=== PATIENT | male | born 1945 | race African-American/Black ===

== ENCOUNTER 2023-10-09 00:28 | Inpatient (IN) ==
--- NOTE | 2023-10-09 00:41 | Emergency Department Note ---
History of Present Illness General Chief complaint: Chest Pain Stated complaint: R SIDED CHEST PAIN Time Seen by Provider: 10/09/23 00:28 Source: patient, EMS and old records reviewed ([facility]) Mode of arrival: EMS Limitations: other (Poor historian and as EMS he does have dementia) History of Present Illness This patient is a 78-year-old male who [facility] by [facility] after having chest pain apparently he seems to be a very poor historian and by EMS report does have dementia. He denies any pain at present he apparently was having right-sided chest pain that was reproducible upon palpation and movement he denies any pain at present I did give him aspirin and nitroglycerin. He has had no reported fall or trauma. No fever or chills. Allergies Allergy/AdvReac Type Severity Reaction Status Date / Time No Known Allergies Allergy Unverified 10/09/23 02:54 Past Med/Surg History Problem List (Updated 10/09/23 @ 03:45 by Pérez Nuno MD) Incarceration (Acute) Pulmonary embolism (Acute) Right bundle branch block (Acute) Chest pain (Acute) Social History Smoking Status: Unknown if ever smoked Preferred Language: Croatian Feels Safe at Home: Yes Immunizations: Past medical history-increased cholesterol, dementia Review of Systems A total of 10 systems reviewed and were otherwise negative Physical Exam Vital Signs Vital Signs - 24 hr 10/09/23 00:21 10/09/23 00:21 10/09/23 00:35 Temperature 37.3 C Temperature Source Oral Pulse Rate 86 75 Pulse Rhythm Regular Regular Pulse Strength Normal Respiratory Rate 16 16 Respiratory Effort / Characteristics Non-Labored Respiratory Depth Normal Respiratory Pattern Regular Blood Pressure 155/97 H Blood Pressure Mean 116 Blood Pressure Position Sitting Pulse Oximetry 95 95 95 Oxygen Delivery Method Room Air Room Air Room Air Sepsis Recent Fever Within 48 Hours No Sepsis New/Unexplained Change in Mental Status No Sepsis Action Taken by Nursing No Action Required 10/09/23 00:39 Temperature Temperature Source Pulse Rate 93 H Pulse Rhythm Pulse Strength Respiratory Rate Respiratory Effort / Characteristics Respiratory Depth Respiratory Pattern Blood Pressure Blood Pressure Mean Blood Pressure Position Pulse Oximetry Oxygen Delivery Method Sepsis Recent Fever Within 48 Hours Sepsis New/Unexplained Change in Mental Status Sepsis Action Taken by Nursing General: Well developed well nourished older male who appears in no acute distress, breathing comfortably on room air. Normal speech. He answers most questions appropriately but very vaguely and appears to be a poor historian HEENT: Normal cephalic atraumatic. Pupils are equal round and reactive to light. Extraocular movements are intact. Oropharynx is pink with moist mucous membranes. No swelling of the mouth lips or tongue. Neck: Supple with a midline trachea. No meningeal signs or stiffness, no JVD or bruits. No Stridor. Chest: Clear to auscultation bilaterally. No wheezes or rhonchi. No increased work of breathing. No crepitus or subcutaneous air no tenderness at present Heart: Regular rate and rhythm without murmurs or gallops. Abdomen: Soft nontender, nondistended without rebound guarding or rigidity. Extremities: No cyanosis clubbing or edema. No calf tenderness or assymetry Spine/Back. Non tender to palpation. No CVA tenderness Skin: Good turgor without rashes. Neurologic exam: Cranial nerves two through 12 are intact. Motor and sensation are intact and symmetrical throughout. Course Administered Medications Heparin Sodium/Dextrose (Heparin Sodium/Dextrose) 25,000 units in 500 mls @ 24 mls/hr IV .[id number] [facility]; Protocol Stop: 11/08/23 03:14 Last Admin: 10/09/23 03:32 Dose: 1,200 units/hr, 24 mls/hr Documented By: FERNANDO Co-signed By: JAMEY Discontinued Medications Heparin Sodium (Porcine) (Heparin Sod (Porcine) 1000 Unit/Ml) 5,000 units IV NOW ONE Stop: 10/09/23 03:16 Last Admin: 10/09/23 03:32 Dose: 5,000 units Documented By: FERNANDO Co-signed By: JAMEY Ioversol (Optiray 320 125ml) 112 ml IV ONCE ONE Stop: 10/09/23 01:52 Last Admin: 10/09/23 01:55 Dose: 112 ml Documented By: AG Miscellaneous Information (Patient's Allergy Info Needs Entered) 1 each N/A NOW STA Stop: 10/09/23 02:48 Last Admin: 10/09/23 02:55 Dose: 1 each Documented By: FERNANDO Critical Care Time Critical Care Time: Yes Total Critical Care Time: 30 Due to the patient's chest pain, significant cardiac workup and then workup treatment evaluation for pulmonary embolism with IV heparin, frequent reassessment and discussion with the consultants as well as the patient, I have personally spent greater than 30 minutes of critical care time in the direct management of this patient. This includes bedside care, interpretation of diagnostic studies, and testing, discussion with consultants, patient, and family members, and other required patient management activities. This 30 minutes is in excess of all separately billable procedures. Medical Decision Making Differential Diagnosis Acute coronary syndrome, arrhythmia, PE, pneumothorax, GERD, musculoskeletal, infection Medical Records Attestation: I reviewed the patient's medical records. Home Medications Current Medication List: was personally reviewed by me Laboratory Data Attestation: I reviewed the patient's lab results. Chest x-rayno acute infiltrate, failure, pneumothorax seen 10/09/23 00:33 10/09/23 00:33 Lab Results 10/09/23 10/09/23 Range/Units 00:33 02:40 WBC 7.50 (4.8-10.8) K/ul RBC 4.16 L (4.70-6.10) M/uL Hgb 13.2 L (14.0-18.0) g/dl Hct 38.3 L (42.0-52.0) % MCV 92.1 (80.0-100.0) fL MCH 31.7 (25.0-34.0) pg MCHC 34.5 (32.0-36.0) g/dL RDW Std Deviation 41.8 (36.4-46.3) fL RDW Coeff of Edinson 12.3 (11.5-14.5) % Plt Count 166 (130-400) K/uL MPV 10.3 (9.4-12.4) fL Immature Gran % (Auto) 0.4 % Neut % (Auto) 60.6 % Lymph % (Auto) 24.7 % [place] % (Auto) 12.9 % Eos % (Auto) 1.1 % Baso % (Auto) 0.3 % Neut # (Auto) 4.55 (1.40-6.50) K/uL Lymph # (Auto) 1.85 (1.20-3.40) K/uL [place] # (Auto) 0.97 H (0.11-0.59) K/uL Eos # (Auto) 0.08 (0.00-0.50) K/uL Baso # (Auto) 0.02 (0.00-0.20) K/uL Immature Gran # (Auto) 0.03 (0.01-0.20) K/uL PT 11.0 (9.0-12.0) Seconds INR 1.0 (0.9-1.1) APTT 26 (21-31) Seconds PTT Ratio 1.0 D-Dimer 4270 H* (0-500) ug/L FEU Sodium 136 (136-145) mmol/L Potassium 4.7 (3.5-5.1) mmol/L Chloride 106 (98-107) mmol/L Carbon Dioxide 23 (21-32) mmol/L Anion Gap 7 (3-11) BUN 22 (6-23) mg/dl Creatinine 1.22 (0.6-1.4) mg/dl Est Cr Clr Drug Dosing 45.8 ml/min Est GFR ( Amer) 65.9 ml/min Est GFR (Non-Af Amer) 56.8 ml/min BUN/Creatinine Ratio 18.0 (10-20) Glucose 141 H (70-99(Fasting)) mg/dl Calcium 9.4 (8.6-10.3) mg/dl Magnesium 2.0 (1.7-2.4) mg/dl Total Bilirubin 1.8 H (0.2-1.0) mg/dl AST 32 (13-39) U/L ALT 41 (7-52) U/L Alkaline Phosphatase 79 (34-104) U/L Troponin I High Sens 9.3 8.8 (0-20) pg/ml Total Protein 7.6 (6.0-8.3) gm/dl Albumin 3.9 (3.4-5.0) gm/dl Globulin 3.7 (2.5-4.0) gm/dl Albumin/Globulin Ratio 1.1 (0.9-2) Lipase 17 (11-82) U/L Imaging Data Attestation: I personally reviewed and interpreted this imaging study as follows: My Impression: Chest x-rayno acute infiltrate, failure, pneumothorax seen as per my independent interpretation CTA of the chest there is medium sized PE on the right. There is no saddle emboli. There appears to be changes in the lung as well which could be infarct Radiologist's Impression: Chest CTA 10/09/23 01:39 CR Exam(s): CTA CHEST IV Amt: 112 cc opti 320 EXAM: CT Chest With Intravenous Contrast CLINICAL HISTORY: Reason for exam: CP, 4200 d dimer.. TECHNIQUE: Axial computed tomographic images of the chest with intravenous contrast. CTDI is 18.1 mGy and DLP is 543.77 mGy-cm. Automated exposure control was utilized for the study. A dose lowering technique was utilized adhering to the principles of ALARA. COMPARISON: No relevant prior studies available. FINDINGS: Pulmonary arteries: Occlusive pulmonary emboli within the right lower lobe segmental and subsegmental pulmonary arteries. Partially occlusive right middle lobe subsegmental pulmonary arteries. Aorta: Ectasia of the Descending thoracic aorta 3.3 cm. No thoracic aortic aneurysm. Lungs: Right lower lobe infiltrate may represent pulmonary infarct. No mass. Pleural space: Unremarkable. No significant effusion. No pneumothorax. Heart: Cardiomegaly. Coronary artery calcification. No significant pericardial effusion. No evidence of RV dysfunction. Bones/joints: No acute fracture. No dislocation. Soft tissues: Unremarkable. Lymph nodes: Unremarkable. No enlarged lymph nodes. IMPRESSION: Occlusive pulmonary emboli within the right lower and middle lobe pulmonary arteries Infiltrate at the right lung base may represent the sequelae from early pulmonary infarct. Communications: Call Doctor Pulmonary Embolism Electronically signed by: Jamaal Leblanc MD 10/09/23 02:46 AM ECG Data Attestation: I personally reviewed and interpreted this ECG as follows: Indication: + chest pain Rate (beats per minute): 88 Rhythm: + normal sinus ECG Intervals/blocks: + Right Bundle branch block ECG [place]: + Left axis deviation ECG ST segments: + Normal ST segments ECG Findings: no PACs or no PVCs Comparison ECG Date: from (Earlier EKG at [place], no change) Additional Comments: EKG done herenormal sinus rhythm at a rate of 84 left axis deviation right bundle branch block. No significant change compared EKG to the prehospital EKG. EKG #2: Normal sinus rhythm rate of 75 left axis deviation right bundle branch block. No change compared to EKG #1 MDM Narrative This patient comes in as described above. He was placed on a it business process architect room a 12 he has gotten aspirin and nitro prior to arrival he appears comfortable he is a very poor historian and apparently has some dementia but does not seem to have any complaints at present I reviewed the EKGs from he has 2 of them done there which shows a right bundle branch block. I do not have any old ones for comparison we did a full cardiac workup here was placed on a it business process architect EKG was repeated cardiac biomarkers were done. Chest x-ray was also obtained. He was reassessed. His EKG does not show any ischemic changes and there is no change between his 2 EKGs had prehospital and the first 1 done here. His chest x-ray was unremarkable there is no congestive heart failure, pneumonia, pneumothorax. His troponin was normal. He has no significant electrolyte or metabolic abnormalities. EKG x 2 does not show any acute ischemic changes compared to the one done earlier. His troponin twice was also negative. His D-dimer was significantly elevated and I did do a CT angiography. It does appear that he has a pulmonary pulmonary emboli on the right. I talked the patient at length he had no recent trauma he is on no blood thinners he had no blood or melena in his stool. I did discuss the case at length with Dr. Olson as well in consultation as the patient will need to be admitted he agreed was started on heparin IV with standard bolus. The patient will be admitted for treatment and evaluation of his pulmonary embolism. Continuous cardiac monitoring: Orders placed in EMR for continuous it business process architect: Upon my evaluation patient noted to be in normal sinus rhythm rate of 85 Impression & Plan Pulmonary embolism, Chest pain, Right bundle branch block, Incarceration Discharge Plan Visit Data Chief Complaint: Chest Pain Stated Complaint: R SIDED CHEST PAIN ED Provider: Pérez Nuno Discharge Problem: Pulmonary embolism, Chest pain, Right bundle branch block, Incarceration Forms Stand Alone Forms: My [facility] Referrals Referrals: Sabino VALDEZ [Primary Care Provider] - Discharge Problem: Pulmonary embolism Qualifiers: Pulmonary embolism type: unspecified Chronicity: acute Acute cor pulmonale presence: unspecified Qualified Code(s): I26.99 - Other pulmonary embolism without acute cor pulmonale Chest pain Qualifiers: Chest pain type: unspecified Qualified Code(s): R07.9 - Chest pain, unspecified
[2023-10-09 00:54] LABS: Basophils # (auto) 0.02 K/uL (0.00-0.20); Basophils % (auto) 0.3 %; Eosinophils # (auto) 0.08 K/uL (0.00-0.50); Eosinophils % (auto) 1.1 %; Hematocrit (blood only) 38.3 % (42.0-52.0); Hemoglobin 13.2 g/dl (14.0-18.0); Immature Granulocytes # (auto) 0.03 K/uL (0.01-0.20); Immature Granulocytes % (auto) 0.4 %; Lymphocytes # (auto) 1.85 K/uL (1.20-3.40); Lymphocytes % (auto) 24.7 %; Mean Corpuscular Hemoglobin 31.7 pg (25.0-34.0); Mean Corpuscular Hgb Conc 34.5 g/dL (32.0-36.0); Mean Corpuscular Volume 92.1 fL (80.0-100.0); Mean Platelet Volume 10.3 fL (9.4-12.4); Monocytes # (auto) 0.97 K/uL (0.11-0.59); Monocytes % (auto) 12.9 %; Neutrophils # (auto) 4.55 K/uL (1.40-6.50); Neutrophils % (auto) 60.6 %; Platelet Count 166 K/uL (130-400); RDW Coefficient of Variation 12.3 % (11.5-14.5); RDW Standard Deviation 41.8 fL (36.4-46.3); Red Blood Count 4.16 M/uL (4.70-6.10)
[2023-10-09 01:06] LABS: Albumin Globulin Ratio 1.1 (0.9-2); Albumin Level 3.9 gm/dl (3.4-5.0); Bilirubin,Total 1.8 mg/dl (0.2-1.0); Calcium 9.4 mg/dl (8.6-10.3); Creatinine Clr Calc Pharmacy 45.8 ml/min; Est GFR (African American) 65.9 ml/min; Est GFR (Non-African American) 56.8 ml/min; Globulin 3.7 gm/dl (2.5-4.0); Potassium 4.7 mmol/L (3.5-5.1); Total Protein 7.6 gm/dl (6.0-8.3)
[2023-10-09 01:13] LABS: Troponin I High Sensitivity 9.3 pg/ml (0-20)
[2023-10-09 01:15] LABS: Partial Thromboplastin Time 26 Seconds (21-31)
[2023-10-09 01:34] LABS: D Dimer 4270 ug/L FEU (0-500)
[2023-10-09] MEDS: OPTIRAY 320 125ml IV ONE (01:55)
--- NOTE | 2023-10-09 02:47 | CT Scan Report ---
Exam(s): CTA CHEST IV Amt: 112 cc opti 320 EXAM: CT Chest With Intravenous Contrast CLINICAL HISTORY: Reason for exam: CP, 4200 d dimer.. TECHNIQUE: Axial computed tomographic images of the chest with intravenous contrast. CTDI is 18.1 mGy and DLP is 543.77 mGy-cm. Automated exposure control was utilized for the study. A dose lowering technique was utilized adhering to the principles of ALARA. COMPARISON: No relevant prior studies available. FINDINGS: Pulmonary arteries: Occlusive pulmonary emboli within the right lower lobe segmental and subsegmental pulmonary arteries. Partially occlusive right middle lobe subsegmental pulmonary arteries. Aorta: Ectasia of the Descending thoracic aorta 3.3 cm. No thoracic aortic aneurysm. Lungs: Right lower lobe infiltrate may represent pulmonary infarct. No mass. Pleural space: Unremarkable. No significant effusion. No pneumothorax. Heart: Cardiomegaly. Coronary artery calcification. No significant pericardial effusion. No evidence of RV dysfunction. Bones/joints: No acute fracture. No dislocation. Soft tissues: Unremarkable. Lymph nodes: Unremarkable. No enlarged lymph nodes. IMPRESSION: Occlusive pulmonary emboli within the right lower and middle lobe pulmonary arteries Infiltrate at the right lung base may represent the sequelae from early pulmonary infarct. Communications: Call Doctor Pulmonary Embolism Electronically signed by: Jamaal Leblanc MD 10/09/23 02:46 AM
[2023-10-09] MEDS: Patient's ALLERGY Info needs ENTERED STA (02:55)
[2023-10-09] MEDS ORDERED: Heparin IV Adult Wt-Based Standard w/ INITIAL Bolus Protocol IV STA (02:56)
[2023-10-09] MEDS ORDERED: HEPARIN SOD (PORCINE) 1000 UNIT/ML IV ONE (03:11)
[2023-10-09 03:14] LABS: Troponin I High Sensitivity 8.8 pg/ml (0-20)
--- NOTE | 2023-10-09 03:24 | History & Physical Report ---
Date of Service October 09, 2023 Assessment & Plan (1) Pulmonary embolism: Plan: Initial occurrence Unprovoked event Rule out leg clot as source hypertension, slight elevated hyperlipidemia, on statin Rx New onset anemia, last hemoglobin was 15.1 last month as per [facility] nurse, no overt source of bleed, FOBT done at the ER was negative. Hyperglycemia rule out DM possible dementia as per records past tobacco abuse Medical telemetry IV heparin Transition to Eliquis if medication will be covered upon return to [facility] facility. LE venous Dopplers rule out DVT Anemia workup Check hemoglobin A1c DVT prophylaxis. IV heparin Full code Text document was generated using Wowsai voice recognition software. It may contain grammatical or spelling errors. Kindly contact undersigned for clarification of any documentation item in question. History of Present Illness Chief Complaint: Right-sided chest pain Primary Care Provider: JOSÉ MIGUEL Gallo History obtained from patient and records. Patient is a fair historian. Medical history significant for hypertension, hyperlipidemia, possible dementia as per records, past tobacco abuse. Patient complained to [facility] staff of right-sided chest pain without other symptoms last night. No cough, no SOB, no unusual leg swelling. No abdominal pain, black/bloody stools, hematuria. No prior blood clots or family history as per patient. IV heparin administered at the ER for pulmonary emboli on CT imaging. 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, originally from [place] Allergies Allergy/AdvReac Type Severity Reaction Status Date / Time No Known Allergies Allergy Unverified 10/09/23 02:54 Home Medications Medication Instructions Recorded Confirmed Type Vitamin D3 1,000 units PO DAILY 10/09/23 10/09/23 History amlodipine 10 mg tablet 10 mg PO DAILY 10/09/23 10/09/23 History atorvastatin 40 mg PO DAILY 10/09/23 10/09/23 History Past Med/Surg History Problem List (Updated 10/09/23 @ 03:45 by Pérez Nuno MD) Incarceration (Acute) Pulmonary embolism (Acute) Right bundle branch block (Acute) Chest pain (Acute) Social History Smoking Status: Unknown if ever smoked Hx Alcohol Use: No Hx Substance Use: No Preferred Language: Kinyarwanda Director Of Financial Aid Required: No Beliefs That Will Affect Care: None Current Living Situation: Other Current Living Situation Comment: [facility] Other Information That Helps Us Care for You: No Feels Safe at Home: Yes Safety Concerns: Feels Safe At This Time Assistive Devices: None Review of Systems Review of Systems: As per HPI, all other systems reviewed and negative Physical Exam Physical Exam: GENERAL: Oriented to place, comfortable, no respiratory distress SKIN: Normal color, warm HEENT: [place] palpebral conjunctivae, no ptosis, dry buccal mucosa NECK : Supple, no tenderness CHEST : CTA, no tenderness HEART : RRR, no obvious murmurs ABDOMEN: Some distention, nontender RECTAL : Intact sphincter, brown stool (FOBT negative) EXTREMITIES : No LE swelling/tenderness, no other conspicuous deformities noted NEUROLOGIC : Oriented to place, no facial asymmetry, no other gross focality Results & Data Results & Data Vital Signs (Past 12 Hours) Vital Signs Temp Pulse Resp BP Pulse Ox O2 Del Method 10/09/23 00:39 93 H 10/09/23 00:35 75 16 95 Room Air 10/09/23 00:21 95 Room Air 10/09/23 00:21 37.3 C 86 16 155/97 H 95 Room Air Laboratory Results Laboratory Results WBC 7.50 K/ul (4.8-10.8) 10/09/23 00:33 RBC 4.16 M/uL (4.70-6.10) L 10/09/23 00:33 Hgb 13.2 g/dl (14.0-18.0) L 10/09/23 00:33 Hct 38.3 % (42.0-52.0) L 10/09/23 00:33 MCV 92.1 fL (80.0-100.0) 10/09/23 00:33 MCH 31.7 pg (25.0-34.0) 10/09/23 00:33 MCHC 34.5 g/dL (32.0-36.0) 10/09/23 00:33 RDW Std Deviation 41.8 fL (36.4-46.3) 10/09/23 00:33 RDW Coeff of Edinson 12.3 % (11.5-14.5) 10/09/23 00:33 Plt Count 166 K/uL (130-400) 10/09/23 00:33 MPV 10.3 fL (9.4-12.4) 10/09/23 00:33 Immature Gran % (Auto) 0.4 % 10/09/23 00:33 Neut % (Auto) 60.6 % 10/09/23 00:33 Lymph % (Auto) 24.7 % 10/09/23 00:33 [place] % (Auto) 12.9 % 10/09/23 00:33 Eos % (Auto) 1.1 % 10/09/23 00:33 Baso % (Auto) 0.3 % 10/09/23 00:33 Neut # (Auto) 4.55 K/uL (1.40-6.50) 10/09/23 00:33 Lymph # (Auto) 1.85 K/uL (1.20-3.40) 10/09/23 00:33 [place] # (Auto) 0.97 K/uL (0.11-0.59) H 10/09/23 00:33 Eos # (Auto) 0.08 K/uL (0.00-0.50) 10/09/23 00:33 Baso # (Auto) 0.02 K/uL (0.00-0.20) 10/09/23 00:33 Immature Gran # (Auto) 0.03 K/uL (0.01-0.20) 10/09/23 00:33 PT 11.0 Seconds (9.0-12.0) 10/09/23 00:33 INR 1.0 (0.9-1.1) 10/09/23 00:33 APTT 26 Seconds (21-31) 10/09/23 00:33 PTT Ratio 1.0 10/09/23 00:33 D-Dimer 4270 ug/L FEU (0-500) H* 10/09/23 00:33 Sodium 136 mmol/L (136-145) 10/09/23 00:33 Potassium 4.7 mmol/L (3.5-5.1) 10/09/23 00:33 Chloride 106 mmol/L (98-107) 10/09/23 00:33 Carbon Dioxide 23 mmol/L (21-32) 10/09/23 00:33 Anion Gap 7 (3-11) 10/09/23 00:33 BUN 22 mg/dl (6-23) 10/09/23 00:33 Creatinine 1.22 mg/dl (0.6-1.4) 10/09/23 00:33 Est Cr Clr Drug Dosing 45.8 ml/min 10/09/23 00:33 Est GFR ( Amer) 65.9 ml/min 10/09/23 00:33 Est GFR (Non-Af Amer) 56.8 ml/min 10/09/23 00:33 BUN/Creatinine Ratio 18.0 (10-20) 10/09/23 00:33 Glucose 141 mg/dl (70-99(Fasting)) H 10/09/23 00:33 Calcium 9.4 mg/dl (8.6-10.3) 10/09/23 00:33 Magnesium 2.0 mg/dl (1.7-2.4) 10/09/23 02:40 Total Bilirubin 1.8 mg/dl (0.2-1.0) H 10/09/23 00:33 AST 32 U/L (13-39) 10/09/23 00:33 ALT 41 U/L (7-52) 10/09/23 00:33 Alkaline Phosphatase 79 U/L (34-104) 10/09/23 00:33 Troponin I High Sens 8.8 pg/ml (0-20) 10/09/23 02:40 Total Protein 7.6 gm/dl (6.0-8.3) 10/09/23 00:33 Albumin 3.9 gm/dl (3.4-5.0) 10/09/23 00:33 Globulin 3.7 gm/dl (2.5-4.0) 10/09/23 00:33 Albumin/Globulin Ratio 1.1 (0.9-2) 10/09/23 00:33 Lipase 17 U/L (11-82) 10/09/23 00:33 Impressions Chest CTA 10/09/23 01:39 CR Exam(s): CTA CHEST IV Amt: 112 cc opti 320 EXAM: CT Chest With Intravenous Contrast CLINICAL HISTORY: Reason for exam: CP, 4200 d dimer.. TECHNIQUE: Axial computed tomographic images of the chest with intravenous contrast. CTDI is 18.1 mGy and DLP is 543.77 mGy-cm. Automated exposure control was utilized for the study. A dose lowering technique was utilized adhering to the principles of ALARA. COMPARISON: No relevant prior studies available. FINDINGS: Pulmonary arteries: Occlusive pulmonary emboli within the right lower lobe segmental and subsegmental pulmonary arteries. Partially occlusive right middle lobe subsegmental pulmonary arteries. Aorta: Ectasia of the Descending thoracic aorta 3.3 cm. No thoracic aortic aneurysm. Lungs: Right lower lobe infiltrate may represent pulmonary infarct. No mass. Pleural space: Unremarkable. No significant effusion. No pneumothorax. Heart: Cardiomegaly. Coronary artery calcification. No significant pericardial effusion. No evidence of RV dysfunction. Bones/joints: No acute fracture. No dislocation. Soft tissues: Unremarkable. Lymph nodes: Unremarkable. No enlarged lymph nodes. IMPRESSION: Occlusive pulmonary emboli within the right lower and middle lobe pulmonary arteries Infiltrate at the right lung base may represent the sequelae from early pulmonary infarct. Communications: Call Doctor Pulmonary Embolism Electronically signed by: Jamaal Leblanc MD 10/09/23 02:46 AM Diagnostic Findings EKG as per my interpretation : Rate 75, NSR, LAD, LAFB, RBBB, T wave flattening inferior leads (1) Pulmonary embolism Acute cor pulmonale presence: unspecified Chronicity: acute Pulmonary embolism type: unspecified Qualified Code(s): I26.99 - Other pulmonary embolism without acute cor pulmonale
[2023-10-09] MEDS: HEPARIN SOD (PORCINE) 1000 UNIT/ML IV ONE (03:32)
[2023-10-09] MEDS: HEPARIN SODIUM/DEXTROSE 25,000 UNITS/500 ML BAG IV SCH (03:32)
[2023-10-09] MEDS ORDERED: PROMETHAZINE HCL 6.25 MG in SODIUM CHLORIDE 0.9% 50 ML IV PRN (04:12)
[2023-10-09] MEDS ORDERED: traMADol HCL 50 MG TABLET PO PRN (04:12)
[2023-10-09] MEDS ORDERED: ACETAMINOPHEN 325 MG TAB PO PRN (04:12)
[2023-10-09] MEDS: SODIUM CHLORIDE 0.9% 1,000 ML IV ONE (05:13)
--- NOTE | 2023-10-09 06:54 | XRay Report ---
XR chest 1V portable CLINICAL HISTORY: Chest pain, nonspecific COMPARISON STUDY: No previous studies for comparison. FINDINGS: There is mild elevation of the right hemidiaphragm. Patchy right lower lung opacity is pres ent. There is no pneumothorax or pleural effusion. Cardiac size is normal. Mediastinal contours are n ormal. There is no evidence for pulmonary edema. IMPRESSION: Nonspecific patchy right lower lung opacity. ACT 112: Negative or not required by law. Electronically signed by: Rip Toledo M.D. 10/09/2023 6:53 AM
[2023-10-09 07:14] LABS: Estimated Average Glucose 146 mg/dl; Hemoglobin A1C 6.7 % (4.5-5.6)
[2023-10-09] MEDS: amLODIPine BESYLATE 5 MG TAB PO SCH (07:33)
[2023-10-09] MEDS: ATORVASTATIN 40 MG TAB PO SCH (08:44)
--- NOTE | 2023-10-09 10:06 | Ultrasound Report ---
US venous doppler LE BI CLINICAL HISTORY: pe workup TECHNIQUE: Bilateral lower extremity real-time compression venous ultrasound with Color Doppler imagi ng. Utilizing real-time ultrasonic imaging multiple real time high-resolution ultrasonic images with compression and noncompression maneuvers of the deep venous system in addition to color doppler imagi ng were performed from the common femoral vein through the proximal calf veins. COMPARISON: None available at the time of this dictation. FINDINGS/IMPRESSION: Nearly occlusive thrombosis in the right proximal and mid femoral vein. No left-sided thrombus is see n. Diminished venous flow is seen bilaterally. ACT 112: Negative or not required by law. Electronically signed by: Kai Wall M.D. 10/09/2023 10:04 AM
--- NOTE | 2023-10-09 10:21 | Communication Note ---
Date of Service: October 09, 2023 Pt was seen while still down in the ED. Per corrections officers present in the room has Hx of early dementia. AAOx1 on exam Denied chest pain at the time of exam. Not requiring oxygen supplementation at that time RRR, breath sounds clear bilaterally Doppler US noting RLE DVT Continue with IV heparin at this time with plan to transition to DOAC Further workup as to cause per outpt provider. If remains stable, anticipate d/c tomorrow. Hgba1c of 6.7- indicates new dx of DMII. ISS while hospitalized. PCP followup Follow Anemia panel in AM For further details on plan of care, please see the History and Physical from the same date of service.
[2023-10-09 10:40] LABS: ANTI-Xa, UFH(UnfractionatedHep 0.77 IU/ml (0.3-0.7)
[2023-10-09 17:06] LABS: ANTI-Xa, UFH(UnfractionatedHep 0.55 IU/ml (0.3-0.7)
[2023-10-09] MEDS ORDERED: DEXTROSE 50% 50 ML SYRINGE IV PRN (17:07)
[2023-10-09] MEDS ORDERED: GLUCOSE 40% GEL 15 GM TUBE PO PRN (17:07)
[2023-10-09] MEDS ORDERED: CARBOHYDRATES FOR HYPOGLYCEMIA PO PRN (17:07)
[2023-10-09] MEDS ORDERED: GLUCAGON FOR INJ 1 MG VIAL SQ PRN (17:07)
[2023-10-09] MEDS ORDERED: GLUCOSE 10 TAB/TUBE PO PRN (17:07)
--- NOTE | 2023-10-09 17:37 | Electrocardiogram Report ---
Test Reason : Blood Pressure : / mmHG Vent. Rate : 084 BPM Atrial Rate : 084 BPM P-R Int : 150 ms QRS Dur : 134 ms QT Int : 396 ms P-R-T Axes : 052 -67 018 degrees QTc Int : 467 ms Normal sinus rhythm Left axis deviation Right bundle branch block Abnormal ECG No previous ECGs available Confirmed by Randal Mccracken ([id number]) on 10/09/2023 5:37:22 PM Referred By: [facility] Confirmed By:Remberto Mccracken
--- NOTE | 2023-10-09 17:38 | Electrocardiogram Report ---
Test Reason : Blood Pressure : / mmHG Vent. Rate : 075 BPM Atrial Rate : 075 BPM P-R Int : 178 ms QRS Dur : 134 ms QT Int : 412 ms P-R-T Axes : 073 -64 019 degrees QTc Int : 460 ms Normal sinus rhythm Left axis deviation Right bundle branch block Abnormal ECG When compared with ECG of 09-OCT-2023 00:34, (unconfirmed) No significant change was found Confirmed by Randal Mccracken ([id number]) on 10/09/2023 5:38:14 PM Referred By: [facility] Confirmed By:Remberto Mccracken
[2023-10-09] MEDS: INSULIN ASPART PER UNIT CHARGE SC SCH (20:52)
[2023-10-09 23:54] LABS: ANTI-Xa, UFH(UnfractionatedHep 0.47 IU/ml (0.3-0.7)
[2023-10-10 04:48] LABS: Basophils # (auto) 0.02 K/uL (0.00-0.20); Basophils % (auto) 0.3 %; Eosinophils # (auto) 0.06 K/uL (0.00-0.50); Eosinophils % (auto) 0.9 %; Hematocrit (blood only) 39.9 % (42.0-52.0); Hemoglobin 13.7 g/dl (14.0-18.0); Immature Granulocytes # (auto) 0.02 K/uL (0.01-0.20); Immature Granulocytes % (auto) 0.3 %; Lymphocytes # (auto) 1.69 K/uL (1.20-3.40); Lymphocytes % (auto) 24.6 %; Mean Corpuscular Hgb Conc 34.3 g/dL (32.0-36.0); Mean Corpuscular Volume 93.2 fL (80.0-100.0); Mean Platelet Volume 10.4 fL (9.4-12.4); Monocytes % (auto) 13.1 %; Neutrophils # (auto) 4.18 K/uL (1.40-6.50); Neutrophils % (auto) 60.8 %; Platelet Count 163 K/uL (130-400); RDW Coefficient of Variation 12.2 % (11.5-14.5); RDW Standard Deviation 41.8 fL (36.4-46.3); Red Blood Count 4.28 M/uL (4.70-6.10); White Blood Count 6.87 K/ul (4.8-10.8)
[2023-10-10 05:01] LABS: BUN Creatinine Ratio 14.3 (10-20); Calcium 9.1 mg/dl (8.6-10.3); Creatinine Clr Calc Pharmacy 49.8 ml/min; Potassium 4.1 mmol/L (3.5-5.1)
[2023-10-10 05:21] LABS: Ferritin 143.1 ng/ml (8-388)
[2023-10-10 05:22] LABS: ANTI-Xa, UFH(UnfractionatedHep 0.53 IU/ml (0.3-0.7)
[2023-10-10 05:34] LABS: Folate (Folic Acid),Ser orPlas > 22.30 ng/ml (>5.38)
[2023-10-10 05:35] LABS: Vitamin B12 421 pg/ml (180-914)
[2023-10-10] MEDS: hydrOXYzine HCl 10 MG TAB PO PRN (07:35)
[2023-10-10 12:10] LABS: ANTI-Xa, UFH(UnfractionatedHep 0.53 IU/ml (0.3-0.7)
--- NOTE | 2023-10-10 12:51 | Hospitalist Progress Note ---
Date of Service October 10, 2023 Assessment & Plan (1) Pulmonary embolism: Plan Pt is a 78yo incarcerated male with PMhx significant for hypertension, hyperlipidemia, possible dementia, past tobacco abuse who was admitted with new PE and DVT. Acute PE due to acute right proximal and mid femoral DVT Pt presented with chest pain Chest CTA noting PE on the right Doppler of the extremities noting DVT Initial occurrence, unprovoked event IV Heparin, consider transition to DOAC Initial occurrence, will defer to pcp for further workup Echo pending to r/o heart strain No increased oxygen requirement at this time Continue to monitor GI consulted in setting of new iron deficiency anemia (see below) and new PE/DVT for possible colonoscopy to rule out colon cancer as a cause. Appreciate recs New onset anemia Iron Deficiency Anemia Last hemoglobin was 15.1 last month as per [facility] nurse No overt source of bleed FOBT done at the ER was negative Anemia workup with low iron levels and transferrin sat B12 and folate wnl GI consulted in setting of new iron deficiency anemia and new PE/DVT for possible colonoscopy to rule out colon cancer as a cause. Appreciate recs Cardiomegaly Coronary Artery calcifications Noted on chest CTA EKG with NSR, RBBB Echo pending Continue with statin Consider addition of baby aspirin Thoracic Aorta Ectasia Noted on CTA chest of descending thoracic aorta, 3.3cm PCP followup Possible dementia as per records Pt with episodes of acute delirium/agitation Was ordered Vistaril prn overnight, continue Consider low dose olanzapine prn as well Delirium precautions. Frequent reorientation, avoid sedating medications Continue to monitor DMII Hgba1c of 6.7 New diagnosis ISS while hospitalized patient educator consulted, appreciate recs Hypertension Slight elevation Continue norvasc Continue to monitor Hyperlipidemia On statin Rx Diet: HH/DMII DVT prophylaxis. IV heparin Dispo: Back to facility once medically stable Admission and Anticipated Discharge Date Admission Date: October 09, 2023 Subjective pt was seen with guards a bedside. Was unarousable as he had recently been given medication for agitation. Review of Systems Review of Systems: Unobtainable due to cognitive status Physical Exam Physical Exam: General: No acute distress Skin: No noted rashes or bruises Psych: Appropriate mood and affect Neuro: No gross deficits HEENT: NC/AT CV: RRR Resp: Breath sounds clear bilaterally, no increased effort of breathing. Abdomen: Soft, nontender, nondistended. Extremities: No edema in lower extremities bilaterally. Results & Data Results & Data Vital Signs (Past 12 Hours) Vital Signs Temp Pulse Pulse Resp BP BP Pulse Ox 10/10/23 11:00 76 17 146/97 H 95 10/10/23 10:38 99 H 16 142/94 H 96 10/10/23 09:19 37.5 C 88 16 165/105 H 97 10/10/23 04:17 75 18 159/95 H 10/10/23 02:03 89 26 H 10/10/23 02:00 143/102 H 10/10/23 01:45 86 18 96 10/10/23 01:40 85 10/10/23 01:00 141/103 H O2 Del Method 10/10/23 11:00 10/10/23 10:38 Room Air 10/10/23 09:19 Room Air 10/10/23 04:17 10/10/23 02:03 10/10/23 02:00 10/10/23 01:45 10/10/23 01:40 10/10/23 01:00 Diagnostic Findings Chest X-Ray 10/09/23 00:35 XR chest 1V portable CLINICAL HISTORY: Chest pain, nonspecific COMPARISON STUDY: No previous studies for comparison. FINDINGS: There is mild elevation of the right hemidiaphragm. Patchy right lower lung opacity is present. There is no pneumothorax or pleural effusion. Cardiac size is normal. Mediastinal contours are normal. There is no evidence for pulmonary edema. IMPRESSION: Nonspecific patchy right lower lung opacity. ACT 112: Negative or not required by law. Electronically signed by: Rip Toledo M.D. 10/09/2023 6:53 AM Chest CTA 10/09/23 01:39 CR Exam(s): CTA CHEST IV Amt: 112 cc opti 320 EXAM: CT Chest With Intravenous Contrast CLINICAL HISTORY: Reason for exam: CP, 4200 d dimer.. TECHNIQUE: Axial computed tomographic images of the chest with intravenous contrast. CTDI is 18.1 mGy and DLP is 543.77 mGy-cm. Automated exposure control was utilized for the study. A dose lowering technique was utilized adhering to the principles of ALARA. COMPARISON: No relevant prior studies available. FINDINGS: Pulmonary arteries: Occlusive pulmonary emboli within the right lower lobe segmental and subsegmental pulmonary arteries. Partially occlusive right middle lobe subsegmental pulmonary arteries. Aorta: Ectasia of the Descending thoracic aorta 3.3 cm. No thoracic aortic aneurysm. Lungs: Right lower lobe infiltrate may represent pulmonary infarct. No mass. Pleural space: Unremarkable. No significant effusion. No pneumothorax. Heart: Cardiomegaly. Coronary artery calcification. No significant pericardial effusion. No evidence of RV dysfunction. Bones/joints: No acute fracture. No dislocation. Soft tissues: Unremarkable. Lymph nodes: Unremarkable. No enlarged lymph nodes. IMPRESSION: Occlusive pulmonary emboli within the right lower and middle lobe pulmonary arteries Infiltrate at the right lung base may represent the sequelae from early pulmonary infarct. Communications: Call Doctor Pulmonary Embolism Electronically signed by: Jamaal Leblanc MD 10/09/23 02:46 AM Venous Doppler Study 10/09/23 04:36 US venous doppler LE BI CLINICAL HISTORY: pe workup TECHNIQUE: Bilateral lower extremity real-time compression venous ultrasound with Color Doppler imaging. Utilizing real-time ultrasonic imaging multiple real time high-resolution ultrasonic images with compression and noncompression maneuvers of the deep venous system in addition to color doppler imaging were performed from the common femoral vein through the proximal calf veins. COMPARISON: None available at the time of this dictation. FINDINGS/IMPRESSION: Nearly occlusive thrombosis in the right proximal and mid femoral vein. No left- sided thrombus is seen. Diminished venous flow is seen bilaterally. ACT 112: Negative or not required by law. Electronically signed by: Kai Wall M.D. 10/09/2023 10:04 AM (1) Pulmonary embolism Acute cor pulmonale presence: unspecified Chronicity: acute Pulmonary embolism type: unspecified Qualified Code(s): I26.99 - Other pulmonary embolism without acute cor pulmonale
[2023-10-10] MEDS: FERROUS SULFATE 325 MG TAB PO SCH (20:54)
[2023-10-11 07:26] LABS: Hematocrit (blood only) 38.2 % (42.0-52.0); Hemoglobin 13.1 g/dl (14.0-18.0); Mean Corpuscular Hemoglobin 31.6 pg (25.0-34.0); Mean Corpuscular Hgb Conc 34.3 g/dL (32.0-36.0); Mean Platelet Volume 10.7 fL (9.4-12.4); Platelet Count 184 K/uL (130-400); RDW Coefficient of Variation 12.2 % (11.5-14.5); RDW Standard Deviation 41.1 fL (36.4-46.3); Red Blood Count 4.15 M/uL (4.70-6.10); White Blood Count 7.91 K/ul (4.8-10.8)
[2023-10-11 07:32] LABS: ANTI-Xa, UFH(UnfractionatedHep 0.49 IU/ml (0.3-0.7)
[2023-10-11 07:48] LABS: Albumin Globulin Ratio 0.9 (0.9-2); Albumin Level 3.5 gm/dl (3.4-5.0); BUN Creatinine Ratio 18.6 (10-20); Bilirubin,Total 2.5 mg/dl (0.2-1.0); Calcium 9.2 mg/dl (8.6-10.3); Creatinine Clr Calc Pharmacy 43.3 ml/min; Est GFR (African American) 61.6 ml/min; Est GFR (Non-African American) 53.1 ml/min; Globulin 3.8 gm/dl (2.5-4.0); Potassium 3.9 mmol/L (3.5-5.1); Total Protein 7.3 gm/dl (6.0-8.3)
--- NOTE | 2023-10-11 12:45 | Hospitalist Progress Note ---
Date of Service October 11, 2023 Assessment & Plan (1) Pulmonary embolism: Plan Pt is a 78yo incarcerated male with PMhx significant for hypertension, hyperlipidemia, possible dementia, past tobacco abuse who was admitted with new PE and DVT. Acute PE due to acute right proximal and mid femoral DVT Pt presented with chest pain Chest CTA noting PE on the right Doppler of the extremities noting DVT Initial occurrence, unprovoked event IV Heparin, consider transition to DOAC Initial occurrence, will defer to pcp for further workup Echo pending to r/o heart strain No increased oxygen requirement at this time Continue to monitor GI consulted in setting of new iron deficiency anemia (see below) and new PE/DVT for possible colonoscopy to rule out colon cancer as a cause. Appreciate recs New onset anemia Iron Deficiency Anemia Last hemoglobin was 15.1 last month as per [facility] nurse No overt source of bleed FOBT done at the ER was negative Anemia workup with low iron levels and transferrin sat B12 and folate wnl GI consulted in setting of new iron deficiency anemia and new PE/DVT for possible colonoscopy to rule out colon cancer as a cause. Appreciate recs Cardiomegaly Coronary Artery calcifications Noted on chest CTA EKG with NSR, RBBB Echo pending Continue with statin Consider addition of baby aspirin Thoracic Aorta Ectasia Noted on CTA chest of descending thoracic aorta, 3.3cm PCP followup Possible dementia as per records Pt with episodes of acute delirium/agitation Was ordered Vistaril prn overnight, continue Consider low dose olanzapine prn as well Delirium precautions. Frequent reorientation, avoid sedating medications Continue to monitor DMII Hgba1c of 6.7 New diagnosis ISS while hospitalized family life educator consulted, appreciate recs Hypertension Slight elevation Continue norvasc Continue to monitor Hyperlipidemia On statin Rx Diet: HH/DMII DVT prophylaxis. IV heparin Dispo: Back to facility once medically stable Admission and Anticipated Discharge Date Admission Date: October 09, 2023 Physical Exam Physical Exam: General: No acute distress Skin: No noted rashes or bruises Psych: Appropriate mood and affect Neuro: No gross deficits HEENT: NC/AT CV: RRR Resp: Breath sounds clear bilaterally, no increased effort of breathing. Abdomen: Soft, nontender, nondistended. Extremities: No edema in lower extremities bilaterally. Results & Data Results & Data Vital Signs (Past 12 Hours) Vital Signs Temp Pulse Pulse Resp BP BP Pulse Ox 10/11/23 11:51 37.2 C 82 18 126/78 95 10/11/23 07:30 37.5 C 90 20 124/81 96 10/11/23 03:18 36.7 C 86 14 124/76 93 O2 Del Method 10/11/23 11:51 Room Air 10/11/23 07:30 Room Air 10/11/23 03:18 Room Air (1) Pulmonary embolism Acute cor pulmonale presence: unspecified Chronicity: acute Pulmonary embolism type: unspecified Qualified Code(s): I26.99 - Other pulmonary embolism without acute cor pulmonale
--- NOTE | 2023-10-11 12:54 | Discharge Summary ---
Discharge Summary Date of Service October 11, 2023 Principal Dx & Hospital Course #1 = Principal Diagnosis (1) Pulmonary embolism: Plan Pt is a 78yo incarcerated male with PMhx significant for hypertension, hyperlipidemia, possible dementia, past tobacco abuse who was admitted with new PE and DVT. Acute PE due to acute right proximal and mid femoral DVT Pt presented with chest pain Chest CTA noting PE on the right Doppler of the extremities noting DVT of the right proximal and mid femoral vein Initial occurrence, unprovoked event IV Heparin treatment while hospitalized and transitioned to po Eliquis on discharge -received one dose of Eliquis 10mg before discharge -discharged with 13 more doses of Eliquis 10mg, then continue with Eliquis 5mg BID Echo pending to r/o heart strain No increased oxygen requirement at this time GI consulted in setting of new iron deficiency anemia (see below) and new PE/DVT for possible colonoscopy to rule out colon cancer as a cause. -GI recommended outpatient followup for colonoscopy as pt confused and no next of kin to obtain consent from. -CT abdomen/pelvis noting esophageal thickening, started on pantoprazole daily. GI followup outpt New onset anemia Iron Deficiency Anemia Last hemoglobin was 15.1 last month as per [facility] nurse Hgb currently 13 Anemia workup with low iron levels and transferrin saturation noted, folate and b12 wnl No overt source of bleed FOBT done at the ER was negative GI consulted in setting of new iron deficiency anemia and new PE/DVT for possible colonoscopy to rule out colon cancer as a cause. Appreciate recs -GI recommended outpatient followup for colonoscopy as pt confused and no next of kin to obtain consent from. -CT abdomen/pelvis noting esophageal thickening, started on pantoprazole daily. GI followup outpt Daily iron supplements Discharged with stool softener and daily iron supplements to help with constipation in this setting Esophageal thickening CT abdomen/pelvis noting esophageal thickening started on pantoprazole daily, and discharged with the same GI followup outpt Bladder Distention Prostatomegaly with chronic outlet obstruction Jay placed Started on flomax 0.4mg daily Urology followup outpt. Cardiomegaly Coronary Artery calcifications Noted on chest CTA EKG with NSR, RBBB Echo pending Continue with statin Consider addition of baby aspirin Thoracic Aorta Ectasia Noted on CTA chest of descending thoracic aorta, 3.3cm PCP followup Possible dementia as per records Pt with episodes of acute delirium/agitation Was ordered Vistaril prn overnight, continue Consider low dose olanzapine prn as well Delirium precautions. Frequent reorientation, avoid sedating medications Continue to monitor DMII Hgba1c of 6.7 New diagnosis ISS while hospitalized occupational health professional consulted, appreciate recs Hypertension Slight elevation Continue norvasc Continue to monitor Hyperlipidemia On statin Rx Notes For Next Care Provider Please ensure followup with gastroenterology for esophageal thickening noted on CT abd/pelvis and colonoscopy recommended by GI in setting of new PE/DVT and iron deficiency anemia. Please ensure followup with Urology for prostatomegaly with chronic outlet obstruction. Pt discharged with jay, please ensure Urology followup Pt with new diagnosis of Diabetes Mellitus, please ensure followup Pt with noted thoracic ectasia- continued followup recommended Medication Changes From Visit Ferrous sulfate 325mg po daily Docusate sodium 100mg BID Eliquis 10mg BID x 13 more doses then Eliquis 5mg BID for chronic use Pantoprazole 40mg daily Flomax 0.4mg daily Admission HPI Per Admitting Provider History obtained from patient and records. Patient is a fair historian. Medical history significant for hypertension, hyperlipidemia, possible dementia as per records, past tobacco abuse. Patient complained to [facility] staff of right-sided chest pain without other symptoms last night. No cough, no SOB, no unusual leg swelling. No abdominal pain, black/bloody stools, hematuria. No prior blood clots or family history as per patient. IV heparin administered at the ER for pulmonary emboli on CT imaging. 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, originally from [place] Admission Exam Per Admitting Provider GENERAL: Oriented to place, comfortable, no respiratory distress SKIN: Normal color, warm HEENT: Eschbach palpebral conjunctivae, no ptosis, dry buccal mucosa NECK : Supple, no tenderness CHEST : CTA, no tenderness HEART : RRR, no obvious murmurs ABDOMEN: Some distention, nontender RECTAL : Intact sphincter, brown stool (FOBT negative) EXTREMITIES : No LE swelling/tenderness, no other conspicuous deformities noted NEUROLOGIC : Oriented to place, no facial asymmetry, no other gross focality Discharge Exam General: No acute distress Skin: No noted rashes or bruises Psych: Appropriate mood and affect Neuro: No gross deficits HEENT: NC/AT CV: RRR Resp: Breath sounds clear bilaterally, no increased effort of breathing. Abdomen: Soft, nontender, nondistended. Extremities: No edema in lower extremities bilaterally. Updated Medication List Medication Instructions Recorded Confirmed Type Vitamin D3 1,000 units PO DAILY 10/09/23 10/09/23 History amlodipine 10 mg tablet 10 mg PO DAILY 10/09/23 10/09/23 History atorvastatin 40 mg PO DAILY 10/09/23 10/09/23 History apixaban 5 mg tablet (Eliquis) 5 mg PO BID #60 tabs 10/11/23 Rx apixaban 5 mg tablet (Eliquis) 10 mg (2 x 5 mg) PO BID #26 tabs 10/11/23 Rx docusate sodium 100 mg tablet 100 mg PO BID #60 tabs 10/11/23 Rx ferrous sulfate 325 mg (65 mg 325 mg PO QAM #30 tabs 10/11/23 Rx iron) tablet,delayed release pantoprazole 40 mg tablet,delayed 40 mg PO DAILY #30 tabs 10/11/23 Rx release tamsulosin 0.4 mg capsule (Flomax) 0.4 mg PO DAILY #30 caps 10/11/23 Rx Hospital Stay Data Consultations 10/09/23 02:24 ED Decision to Admit Stat 10/10/23 18:00 Consult Gastroenterology Routine Diagnostic Imagining Performed 10/09/23 01:39 CT angio chest PE protocol Stat 10/09/23 04:36 US venous duplex leg [US venous doppler LE BI] Routine 10/11/23 12:52 CT Abd and Pelvis [CT abd pelvis IV con only] Urgent Chest X-Ray 10/09/23 00:35 XR chest 1V portable CLINICAL HISTORY: Chest pain, nonspecific COMPARISON STUDY: No previous studies for comparison. FINDINGS: There is mild elevation of the right hemidiaphragm. Patchy right lower lung opacity is present. There is no pneumothorax or pleural effusion. Cardiac size is normal. Mediastinal contours are normal. There is no evidence for pulmonary edema. IMPRESSION: Nonspecific patchy right lower lung opacity. ACT 112: Negative or not required by law. Electronically signed by: Rip Toledo M.D. 10/09/2023 6:53 AM Chest CTA 10/09/23 01:39 CR Exam(s): CTA CHEST IV Amt: 112 cc opti 320 EXAM: CT Chest With Intravenous Contrast CLINICAL HISTORY: Reason for exam: CP, 4200 d dimer.. TECHNIQUE: Axial computed tomographic images of the chest with intravenous contrast. CTDI is 18.1 mGy and DLP is 543.77 mGy-cm. Automated exposure control was utilized for the study. A dose lowering technique was utilized adhering to the principles of ALARA. COMPARISON: No relevant prior studies available. FINDINGS: Pulmonary arteries: Occlusive pulmonary emboli within the right lower lobe segmental and subsegmental pulmonary arteries. Partially occlusive right middle lobe subsegmental pulmonary arteries. Aorta: Ectasia of the Descending thoracic aorta 3.3 cm. No thoracic aortic aneurysm. Lungs: Right lower lobe infiltrate may represent pulmonary infarct. No mass. Pleural space: Unremarkable. No significant effusion. No pneumothorax. Heart: Cardiomegaly. Coronary artery calcification. No significant pericardial effusion. No evidence of RV dysfunction. Bones/joints: No acute fracture. No dislocation. Soft tissues: Unremarkable. Lymph nodes: Unremarkable. No enlarged lymph nodes. IMPRESSION: Occlusive pulmonary emboli within the right lower and middle lobe pulmonary arteries Infiltrate at the right lung base may represent the sequelae from early pulmonary infarct. Communications: Call Doctor Pulmonary Embolism Electronically signed by: Jamaal Leblanc MD 10/09/23 02:46 AM Venous Doppler Study 10/09/23 04:36 US venous doppler LE BI CLINICAL HISTORY: pe workup TECHNIQUE: Bilateral lower extremity real-time compression venous ultrasound with Color Doppler imaging. Utilizing real-time ultrasonic imaging multiple real time high-resolution ultrasonic images with compression and noncompression maneuvers of the deep venous system in addition to color doppler imaging were performed from the common femoral vein through the proximal calf veins. COMPARISON: None available at the time of this dictation. FINDINGS/IMPRESSION: Nearly occlusive thrombosis in the right proximal and mid femoral vein. No left- sided thrombus is seen. Diminished venous flow is seen bilaterally. ACT 112: Negative or not required by law. Electronically signed by: Kai Wall M.D. 10/09/2023 10:04 AM Abdomen/Pelvis CT 10/11/23 12:[address] WITH IV CONTRAST CT DOSE: 564.04 mGy.cm HISTORY: Acute onset abdominal pain r/o colon mass/abn, newPE/dvt,iron def anemia TECHNIQUE: Multiaxial CT images of the abdomen and pelvis were performed following the IV administration of 95 cc of Optiray, A dose lowering technique was utilized adhering to the principles of ALARA. COMPARISON STUDY: CT chest 10/09/2023 FINDINGS: Small right pleural effusion with progressive consolidative and groundglass opacities of the basal right lower lobe. Subpleural consolidation now measures up to 3.8 x 5.4 cm. Mild right middle lobe groundglass densities with left lower lobe subsegmental atelectasis. There is no free air. Unremarkable spleen, pancreas and adrenal glands. Pancreatic duct measures up to 3 mm. No obstructing lesion is identified. Mildly contracted gallbladder. Liver is within normal limits. Patency of the hepatic and portal veins. Mild nonspecific bilateral perinephric stranding. 4 mm nonobstructing calculus of the superior pole left kidney. No ureteral calculi or hydronephrosis. Distention of the urinary bladder with prostatomegaly. Atherosclerosis of the aorta and branch vessels. Infrarenal abdominal aortic ectasia measures up to 2.1 x 2.1 cm. Mild fusiform dilation of the bilateral common iliac arteries. There is no lymphadenopathy. Distal esophageal wall thickening with small hiatal hernia. No bowel obstruction. Normal appendix. Moderate colonic fecal retention. No bowel wall thickening identified. Unremarkable soft tissues. No acute fracture. IMPRESSION: 1. Small right pleural effusion with progressive right basilar consolidation suggestive of pulmonary infarct with atelectasis secondary to the pulmonary emboli seen on the 10/09/2023 CTA of the chest. 2. No bowel obstruction or bowel wall thickening. 3. Left nephrolithiasis. 4. Small hiatal hernia. 5. Prostatomegaly with evidence of chronic outlet obstruction. 6. Additional findings as above. ACT 112: Negative or not required by law. The above report was generated using voice recognition software. It may contain grammatical, syntax or spelling errors. Electronically signed by: Wes Colon M.D. 10/11/2023 2:01 PM Discharge Instructions Given to Patient (Per Discharging Provider) Mr. Alva, You are being discharged back to your facility. You were found to have blood clots in your lungs and lower extremity and we are discharging you with the medication Eliquis to help. The [facility] states they have this medication and will continue your treatment there. You were also found to have an iron deficiency anemia and we started you on iron supplements to help. Please take with the prescribed stool softener or daily miralalx to help with constipation. Constipation was noted on CT of your abdomen/pelvis. With the combination of iron deficiency anemia and new blood clots we were concerned about colon cancer and had you see the distribution transformer assembler who recommended a colonoscopy. We could not get consent from you as you were confused and we could not contact a next of kin. As a result the distribution transformer assembler recommended that you follow up as an outpatient at the [facility] for the recommended colonoscopy. The CT of your abdomen pelvis also noted esophageal thickening and you will need followup for that as well. We started you on the medication pantoprazole to help with that. CT of your abdomen noted prostatomegaly with chronic outlet obstruction and we put in a jay to help with that. We also started you on the medication Flomax to help. You will also need follow up as an outpatient with Urology. Again please keep close follow up with your primary care provider after discharge. Please do not hesitate to come back to the emergency room if your symptoms worsen or return. It was a pleasure taking care of you while you were here. Total Time Total Time Spent Total Time Spent (In Minutes): 75
[2023-10-11] MEDS: OPTIRAY 320 100ml IV ONE (13:20)
--- NOTE | 2023-10-11 14:03 | CT Scan Report ---
ABDOMEN AND PELVIS CT WITH IV CONTRAST CT DOSE: 564.04 mGy.cm HISTORY: Acute onset abdominal pain r/o colon mass/abn, newPE/dvt,iron def anemia TECHNIQUE: Multiaxial CT images of the abdomen and pelvis were performed following the IV administrat ion of 95 cc of Optiray, A dose lowering technique was utilized adhering to the principles of ALARA. COMPARISON STUDY: CT chest 10/09/2023 FINDINGS: Small right pleural effusion with progressive consolidative and groundglass opacities of th e basal right lower lobe. Subpleural consolidation now measures up to 3.8 x 5.4 cm. Mild right middle lobe groundglass densities with left lower lobe subsegmental atelectasis. There is no free air. Unremarkable spleen, pancreas and adrenal glands. Pancreatic duct measures up to 3 mm. No obstructing lesion is identified. Mildly contracted gallbladder. Liver is within normal limits. Patency of the h epatic and portal veins. Mild nonspecific bilateral perinephric stranding. 4 mm nonobstructing calcul us of the superior pole left kidney. No ureteral calculi or hydronephrosis. Distention of the urinary bladder with prostatomegaly. Atherosclerosis of the aorta and branch vessels. Infrarenal abdominal a ortic ectasia measures up to 2.1 x 2.1 cm. Mild fusiform dilation of the bilateral common iliac arter ies. There is no lymphadenopathy. Distal esophageal wall thickening with small hiatal hernia. No bowel obstruction. Normal appendix. Mo derate colonic fecal retention. No bowel wall thickening identified. Unremarkable soft tissues. No ac nikolai fracture. IMPRESSION: 1. Small right pleural effusion with progressive right basilar consolidation suggestive of pulmonary infarct with atelectasis secondary to the pulmonary emboli seen on the 10/09/2023 CTA of the chest. 2. No bowel obstruction or bowel wall thickening. 3. Left nephrolithiasis. 4. Small hiatal hernia. 5. Prostatomegaly with evidence of chronic outlet obstruction. 6. Additional findings as above. ACT 112: Negative or not required by law. The above report was generated using voice recognition software. It may contain grammatical, syntax o r spelling errors. Electronically signed by: Wes Colon M.D. 10/11/2023 2:01 PM
[2023-10-11] MEDS: PANTOprazole 40 MG TAB PO STA (14:59)
[2023-10-11] MEDS: APIXABAN 5 MG TABLET PO SCH (14:59)
[2023-10-11] MEDS: TAMSULOSIN HCL 0.4 MG CAP PO ONE (14:59)
--- NOTE | 2023-10-13 12:48 | Gastrointestinal Consultation ---
Date of Consultation October 11, 2023 Assessment & Plan (1) Pulmonary embolism: (2) Iron deficiency anemia: Plan #1. Iron deficiency anemia and acute DVT/pulmonary embolus. Unable to provide good history, it is unclear if he ever had colonoscopy. He is unable to sign consent for colonoscopy. Attempt will be made to contact next of kin to obtain the consent. If unsuccessful, the patient can be discharged with [facility] with the recommendations to arrange for an outpatient colonoscopy. History of Present Illness Reason for Consultation: Acute DVT with pulmonary embolus. Iron deficiency anemia. Possible endoscopic evaluation of gastrointestinal blood loss. Attending Physician: Maren Kwon MD History of Present Illness Patient is unable to provide good history due to confusion. The patient has been incarcerated for the last 50 years. Long-Term medical records are not available. The patient was admitted with acute pulmonary embolus with right-sided DVT of mid femoral vein. No obvious risk factors for thrombo- occlusive disease. Further evaluation showed mild anemia, hemoglobin 13.1 and iron saturation of 11% consistent with iron deficiency anemia. Denies gastrointestinal symptoms. Denies rectal bleeding, melena, nausea, vomiting. The patient does not recall ever having colonoscopy. Allergies Allergy/AdvReac Type Severity Reaction Status Date / Time No Known Allergies Allergy Unverified 10/09/23 02:54 Home Medications Medication Instructions Recorded Confirmed Type Vitamin D3 1,000 units PO DAILY 10/09/23 10/09/23 History amlodipine 10 mg tablet 10 mg PO DAILY 10/09/23 10/09/23 History atorvastatin 40 mg PO DAILY 10/09/23 10/09/23 History apixaban 5 mg tablet (Eliquis) 5 mg PO BID #60 tabs 10/11/23 Rx apixaban 5 mg tablet (Eliquis) 10 mg (2 x 5 mg) PO BID #26 tabs 10/11/23 Rx docusate sodium 100 mg tablet 100 mg PO BID #60 tabs 10/11/23 Rx ferrous sulfate 325 mg (65 mg 325 mg PO QAM #30 tabs 10/11/23 Rx iron) tablet,delayed release pantoprazole 40 mg tablet,delayed 40 mg PO DAILY #30 tabs 10/11/23 Rx release tamsulosin 0.4 mg capsule (Flomax) 0.4 mg PO DAILY #30 caps 10/11/23 Rx Patient History Social History Smoking Status: Former smoker Hx Alcohol Use: No Hx Substance Use: No Preferred Language: Slovak Configuration Manager Required: No Beliefs That Will Affect Care: None Current Living Situation: Other Current Living Situation Comment: jail Feels Safe at Home: Yes Assistive Devices: None Review of Systems Constitutional: Denies weakness, fatigue, chills, fever, weight loss. Respiratory: Denies cough, denies shortness of breath at rest. Initially admitted with right-sided chest pain that is resolving. Cardiovascular: Additional Comments: Denies palpitations, denies orthopnea. Gastrointestinal: Denies gastrointestinal symptoms, denies diarrhea, rectal bleeding, melena, abdominal pain, nausea, vomiting, gastroesophageal reflux symptoms. Musculoskeletal: Denies chronic pain, denies ambulatory dysfunction. Physical Exam Physical Exam: The patient is comfortable and not acutely distressed. ENMT: Oral mucosa normal without lesions. Neck: Neck is supple without jugular venous distention without mass. Respiratory: Clear bilaterally without wheezing. Cardiovascular: Regular without murmur. Gastrointestinal (Abdomen): Soft, without tenderness, normal bowel sounds, no organomegaly, no ascites. Skin: Warm, good color, no rash. Neurologic: Oriented x 1, speech is intact, grossly no focal abnormalities. Results & Data Vital Signs (Past 12 Hours) Vital Signs Temp Pulse Pulse Pulse Resp BP BP 10/11/23 07:30 37.5 C 90 20 124/81 10/11/23 03:18 36.7 C 86 14 124/76 10/11/23 00:00 91 H Pulse Ox O2 Del Method 10/11/23 07:30 96 Room Air 10/11/23 03:18 93 Room Air 10/11/23 00:00 Laboratory Results Laboratory data reviewed.
== END 2023-10-11 18:45 | DRG 176 ==
LOC: ED 00:28 → SUATTDRO 04:12 → EDINP 04:12 → 2W 10-10 06:14